=== PATIENT | female | born 1980 | race Caucasian/White ===

== ENCOUNTER 2020-07-14 22:45 | Emergency (ER) | payer SELFPAY | END 2020-07-15 00:30 | disposition home or self-care (01) | LOC: ED | DX: L29.9 Pruritus, unspecified (principal); T36.0X5A Adverse effect of penicillins, initial encounter; Z88.0 Allergy status to penicillin; Y92.89 Other specified places as the place of occurrence of the external cause | CPT/HCPCS: J1200; J1885; J2930; J3490 ==